=== PATIENT | male | born 1995 | race American Indian/Alaskan Native ===

== ENCOUNTER 2019-12-25 21:00 | Emergency (ER) | payer SELFPAY ==
[2019-12-25 21:06] VITALS: BP 146/86
--- NOTE | 2019-12-25 21:40 | XRay Report ---
CHEST 1 VIEW INDICATION: Chest Pain COMPARISON: None FINDINGS: SUPPORT DEVICES: None. HEART / MEDIASTINUM: No significant abnormality. LUNGS / PLEURA: No significant pulmonary or pleural abnormality. No pneumothorax. ADDITIONAL FINDINGS: IMPRESSION: 1. No acute cardiopulmonary disease Signer Name: Bradley Oliver MD Signed: 12/25/2019 9:35 PM Workstation Name: [id number]
== END 2019-12-25 23:35 | disposition left against medical advice (07) ==
LOC: ED 21:00
DX: R07.9 Chest pain, unspecified (principal); Z53.21 Procedure and treatment not carried out due to patient leaving prior to being seen by health care provider
CPT/HCPCS: 71045; 93005